=== PATIENT | female | born 1955 | race Caucasian/White ===

== ENCOUNTER 2020-03-08 02:27 | Emergency (ER) | payer MEDICARE, SELFPAY | END 2020-03-08 04:05 | disposition home or self-care (01) | LOC: ERS 02:27 | DX: J34.89 Other specified disorders of nose and nasal sinuses (principal) ==

== ENCOUNTER 2021-03-04 20:29 | Emergency (ER) | payer MEDICARE | END 2021-03-04 22:26 | disposition home or self-care (01) | LOC: ERS 20:29 | DX: J01.90 Acute sinusitis, unspecified (principal); J30.9 Allergic rhinitis, unspecified | CPT/HCPCS: 99283 ==

== ENCOUNTER 2024-06-04 22:56 | Emergency (ER) | payer MEDICARE ==
[2024-06-05] MEDS ORDERED: Amoxicillin/Potassium Clav 875 MG TAB ONE (02:23)
== END 2024-06-05 02:46 | disposition home or self-care (01) ==
LOC: ERS 22:56
DX: J32.9 Chronic sinusitis, unspecified (principal); B96.89 Other specified bacterial agents as the cause of diseases classified elsewhere
CPT/HCPCS: 71046; 87081; 87428; 87430